=== PATIENT | male | born 1985 | race Caucasian/White ===

== ENCOUNTER 2020-04-16 10:42 | Emergency (ER) | payer OTHER, SELFPAY ==
[2020-04-16] VITALS (21 sets, daily range): BP systolic 123–160; BP diastolic 66–95; PULSE 75–108; RESP 15–38; TEMP 37.3; O2SAT 94–100
--- NOTE | ~2020-04-16 | CT_ITS ---
EXAMINATION: CT brain wo con DATE: 04/16/2020 11:33 INDICATION: Head injury TECHNIQUE: Computed tomography (CT) of the head was performed without intravenous contrast. Sagittal and coronal reconstructions were performed. The mA was adjusted according to patient size. Iterative reconstruction technique was employed. The dose-length product was 605.33 mGy-cm. COMPARISON: head CT dated 12/28/2015 FINDINGS: No fracture. No acute intracranial hemorrhage, acute infarction or abnormal extra axial fluid collect ion. Ventricles are normal and symmetric. No mass/mass effect. The orbits, paranasal sinuses and mast oid air cells are normal. IMPRESSION: 1. Normal head CT. Reviewed, dictated and finalized at location A. IMPRESSION: 1. Normal head CT.
--- NOTE | 2020-04-16 11:25 | ED.GENADULT ---
HPI - General Adult General Chief complaint: Dizziness Stated complaint: dizzy r/t fall Time Seen by Provider: 04/16/20 11:04 Source: patient Mode of arrival: ambulatory Limitations: no limitations History of Present Illness HPI narrative: This patient is a 35 year old male who presents for evaluation of head injury. Patient states 5 days ago he fell down some steps and he hit his head on concrete. He does not think he passed out but he has had dizziness, nausea and headache since his fall. He states he became concerned today because he felt like he was going to pass out. He reports he feels alot of pressure to right forehead and behind eye. He states he has hematoma to his forehead but it has resolved and he had epistaxis but that resolved as well. Onset (ago): day(s) (5) Related Data Allergies Allergy/AdvReac Type Severity Reaction Status Date / Time No Known Allergies Allergy Mild Verified 04/16/20 11:02 Review of Systems Review of Systems: All systems reviewed & are unremarkable except as noted in HPI and below Constitutional: Constitutional: Denies fever(s) and Denies weakness Eyes: Eyes: Reports change in vision ENT: Reports epistaxis Cardiovascular: Cardiovascular: Denies chest pain Respiratory: Respiratory: Denies cough and Denies dyspnea Neurologic: Reports dizziness and Reports headache(s) PMFSH Past Medical History Medical History (Updated 04/16/20 @ 13:08 by Araceli Ojeda MD) Patient denies medical problems Surgical History Surgical History (Updated 04/16/20 @ 11:26 by Araceli Ojeda MD) Hx of appendectomy Social History Social History Smoking status: Never smoker Alcohol intake: current Gender identity (if verbalized by the patient): Male Exam Narrative: Exam Narrative: GENERAL: Well-appearing, well-nourished, and in no acute distress. HEAD: Normocephalic, atraumatic EYES: PERRLA and EOMI, conjunctiva clear without discharge EARS: TM's clear bilaterally without erythema or dullness NOSE: Nares clear, no rhinorrhea or epistaxis THROAT:Mucous membranes moist, Oropharynx normal without erythema, exudate, peritonsillar swelling or fluctuance NECK: Supple, without lymphadenopathy or mass RESPIRATORY: No respiratory distress, Airway patent, Respirations non-labored, Clear to auscultation without rales, rhonchi or wheeze HEART: Regular rate and rhythm. No murmur heard. Normal peripheral pulses. ABDOMEN: Soft, nontender, nondistended, normal active bowel sounds. No masses. No rebound or guarding, No organomegaly. EXTREMITIES: No edema, normal strength with full range of motion. SKIN: Warm, dry, normal color without rash NEURO: Alert and oriented x3. CN 2-12 grossly intact. No focal deficits. PSYCH: Normal mood and affect. Course Vital Signs Vital signs: Vital Signs Temperature 99.2 F 04/16/20 10:53 Pulse Rate 108 H 04/16/20 10:53 Respiratory Rate 20 04/16/20 10:53 Blood Pressure 160/88 H 04/16/20 10:53 Pulse Oximetry 99 04/16/20 10:53 Temperature 99.2 F 04/16/20 10:53 Pulse Rate 78 04/16/20 12:16 Respiratory Rate 17 04/16/20 12:16 Blood Pressure 123/66 04/16/20 12:16 Pulse Oximetry 97 04/16/20 12:16 Medical Decision Making Vital Signs Vital Signs: Vital Signs Temperature 99.2 F 04/16/20 10:53 Pulse Rate 108 H 04/16/20 10:53 Respiratory Rate 20 04/16/20 10:53 Blood Pressure 160/88 H 04/16/20 10:53 Pulse Oximetry 99 04/16/20 10:53 Temperature 99.2 F 04/16/20 10:53 Pulse Rate 78 04/16/20 12:16 Respiratory Rate 17 04/16/20 12:16 Blood Pressure 123/66 04/16/20 12:16 Pulse Oximetry 97 04/16/20 12:16 Imaging Data Radiologist's impression: ITS Impressions Head CT 04/16/20 11:36 IMPRESSION: 1. Normal head CT. Discharge Plan Discharge Clinical Impression: Closed head injury with concussion Qualifiers: Encounter type: initial encounter Loss of consciousn
== END 2020-04-16 13:26 | disposition home or self-care (01) ==
PROVIDERS: Emergency Provider General Practice
DX: S06.0X0A Concussion without loss of consciousness, initial encounter (principal); W10.9XXA Fall (on) (from) unspecified stairs and steps, initial encounter
CPT/HCPCS: 70450; 99284

== ENCOUNTER → 2021-12-17 10:47 | Outpatient (CLI) | payer OTHER, SELFPAY ==
--- NOTE | ~2021-12-17 | US_ITS ---
EXAMINATION: US right upper quadrant EXAM DATE: 12/17/2021 11:08 INDICATION: Epigastric pain. TECHNIQUE: Multiple grayscale and Doppler images of the abdomen right upper quadrant were obtained (b y a technologist who performed the scan) and subsequently reviewed. Comparison is made to prior exami nation from 11/16/2012. FINDINGS: The pancreatic head and body are normal in appearance. The pancreatic tail is not visualized. The l iver has normal echogenicity and contour. There are no focal liver lesions identified. There is no evidence of intrahepatic biliary duct dilation. Portal venous flow was seen in the hepatopedal, nor mal direction and has normal Doppler waveform. No right-sided hydronephrosis. Common bile duct measures 4 mm, which is normal. The gallbladder wall is normal in thickness, with ex pected amount of distention. No sonographic evidence of pericholecystic fluid. There is no cholelit hiases. Technologist performing exam reports patient did not demonstrate sonographic Parham's sign. Please note that this sign is less reliable in patients who have received pain medication. IMPRESSION: Unremarkable abdominal ultrasound exam. Reviewed, dictated and finalized at location B. INSPECTOR
== END ==
PROVIDERS: Visit Provider Nurse Practitioner Family
DX: R10.13 Epigastric pain (principal)
CPT/HCPCS: 76705

== ENCOUNTER 2022-07-20 01:34 | Day surgery (SDC) | payer OTHER, SELFPAY ==
[2022-07-06 14:48] VITALS: BMI 26.7
[2022-07-20 06:38] VITALS: BP 140/88; PULSE 79; RESP 18; TEMP 36.4; O2SAT 99; BMI 26.8
[2022-07-20] MEDS: LACTATED RINGERS 1,000 ML 150 ML IV CONT (06:55)
--- NOTE | 2022-07-20 07:01 | P.PNAN_ITS ---
Anes - Initial Pre Proc Eval Procedure: Operation Date: 07/20/22 08:00 Proposed Procedures p Esophagogastroduodenoscopy & Colonoscopy - Wilfrido Valenzuela MD Date/Time: 07/20/22 07:01 Surgeon: Wilfrido Valenzuela MD Pre Op Diagnosis: diarrhea, epigastric pain Patient Data Age: 37 Gender: M Height: 1.8 m Weight: 87.3 kg Last Vital Signs Temp 36.4 C 07/20/22 06:38 Pulse 79 07/20/22 06:38 Resp 18 07/20/22 06:38 BP 140/88 07/20/22 06:38 Pulse Ox 99 07/20/22 06:38 O2 Del Method Room Air 07/20/22 06:38 Allergies Allergy/AdvReac Type Severity Reaction Status Date / Time No Known Allergies Allergy Mild Verified 07/20/22 06:46 Home Medications Medication Instructions Recorded Confirmed Type loperamide 2 mg tablet (Imodium 2 mg PO Q6H PRN Diarrhea 06/06/22 07/20/22 History A-D) Patient hx anesthesia problems: none Family hx anesthesia problems: none Results Review: All pre-operative results and documents have been reviewed as part of the pre- operative evaluation. 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 Diarrhea Epigastric pain Patient denies medical problems Surgical History Surgical History Hx of appendectomy Social History Social History Smoking status: Never smoker Alcohol intake: current Alcohol use details: 6 drinks on weekends Substance use type: does not use Living arrangements: with family Gender identity (if verbalized by the patient): Male Spiritual care concerns: No Anes - Eval Final PreProcedure Day of Procedure 07/20/22 07:01 Patient weight: overweight Heart: regular rate and rhythm Lungs: clear to auscultation Airway: Mallampati scale class II Neurological: alert and oriented Last oral intake: >/= 8 hours ASA classification: II Emergent: no Anesthetic plan: proceed Anesthesia type and monitoring: general GIVS and standard monitoring Results Review: All pre-operative results and documents have been reviewed as part of the pre- operative evaluation. Informed Consent: The patient's anesthetic plan and its attendant risks and benefits were discussed with the patient/family/POA. Questions were solicited and answers provided to the satisfaction of the patient/family/POA.
--- NOTE | 2022-07-20 07:48 | PM.HPGS ---
History of Present Illness History of Present Illness Consent: Risks, benefits, and alternatives have been discussed and questions answered. Patient agrees to proceed with procedure. Chief complaint: diarrhea, epigastric pain Narrative: John Parra is a 37 year old male with intermittent epigastric pain, trial of ppi did not help, also chronic intermittent diarrhea using imodium but can not tell difference. He had egd and colonoscopy in 2009 when had swine flu. Review of Systems Constitutional: Constitutional: Denies headache(s) and Denies weakness Eyes: Eyes: Denies blurry vision ENT: Reports Normal hearing present, Denies headache(s) and Denies neck pain Cardiovascular: Cardiovascular: Denies chest pain and Denies dyspnea Respiratory: Respiratory: Denies dyspnea Gastrointestinal: Gastrointestinal: Reports no additional gastrointestinal complaints Genitourinary: Genitourinary: Denies dysuria Musculoskeletal: Musculoskeletal: Denies neck pain Integumentary/Breasts: Skin/Breast: Denies dry skin Neurologic: Reports Normal hearing present, Denies headache(s) and Denies weakness Psychiatric: Psychiatric: Denies anxiety Endocrine: Endocrine: Denies change in body appearance Hematologic/Lymphatic: Hematologic/Lymphatic: Denies easy bleeding Allergic/Immunologic: Allergic/Immunologic: Denies urticaria PMFSH Past Medical History Medical History (Updated 07/20/22 @ 07:02 by Brayden Mcclellan MD) Abdominal pain 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 Diarrhea Epigastric pain Patient denies medical problems Surgical History Surgical History Hx of appendectomy Social History Social History Smoking status: Never smoker Alcohol intake: current Alcohol use details: 6 drinks on weekends Substance use type: does not use Living arrangements: with family Gender identity (if verbalized by the patient): Male Spiritual care concerns: No Meds Home Medications and Allergies Home Medications Medication Instructions Recorded Confirmed Type loperamide 2 mg tablet (Imodium 2 mg PO Q6H PRN Diarrhea 06/06/22 07/20/22 History A-D) Allergies Allergy/AdvReac Type Severity Reaction Status Date / Time No Known Allergies Allergy Mild Verified 07/20/22 06:46 Vital Signs Vital Signs - 24 hr 07/20/22 06:38 Temperature 97.6 F Pulse Rate 79 Respiratory Rate 18 Blood Pressure 140/88 Pulse Oximetry 99 Oxygen Delivery Room Air Exam Const: General: comfortable and no acute distress HENMT: General nose exam: Normal nares present Eyes: General: appearance normal, both eyes and all related structures Neck: Neck: no JVD Resp: Auscultation: clear to auscultation bilaterally Cardio: Rate: regular rate Rhythm: regular rhythm GI: Inspection: non-distended GI Palp: Yes Soft to palpation Skin: General skin exam: normal color Neuro: General: gait normal Speech: normal speech Extrem: General: normal to inspection Psych: Mental Status: mental status grossly normal Assessment and Plan Assessment and plan (1) Epigastric pain: Code(s): R10.13 - Epigastric pain Status: Acute Assessment and Plan: egd with bx (2) Diarrhea: Code(s): R19.7 - Diarrhea, unspecified Status: Acute Assessment and Plan: colonoscopy with random colon bx
--- NOTE | 2022-07-20 08:04 | SUR.OPER ---
EGD ended at 801, Colonoscopy began at 806.
[2022-07-20 08:21] VITALS: BP 126/87; PULSE 108; RESP 23; O2SAT 99
[2022-07-20 08:31] VITALS: BP 144/90; PULSE 96; RESP 24; O2SAT 100
[2022-07-20 08:41] VITALS: BP 143/92; PULSE 83; RESP 20; O2SAT 100
[2022-07-20 08:51] VITALS: BP 126/83; PULSE 73; RESP 17; O2SAT 99
== END 2022-07-20 09:12 | disposition home or self-care (01) ==
PROVIDERS: PCP Family Medicine; Visit Provider Internal Medicine Gastroenterology
PROC: 0DJ08ZZ Inspection of Upper Intestinal Tract, Via Natural or Artificial Opening Endoscopic (ICD-10-PCS; CPT 43235; principal; 2022-07-20 08:00)
DX: R19.7 Diarrhea, unspecified (principal); K63.5 Polyp of colon; K21.00 Gastro-esophageal reflux disease with esophagitis, without bleeding; K29.70 Gastritis, unspecified, without bleeding; K22.70 Barrett's esophagus without dysplasia
CPT/HCPCS: 45380; 43239; 88305; J2704; J7120

== ENCOUNTER 2023-06-28 07:38 | Outpatient (CLI) | payer OTHER, SELFPAY ==
--- NOTE | ~2023-06-28 | CT_ITS ---
EXAMINATION: CT abdomen pelvis w con DATE: 06/28/2023 08:07 INDICATION: Epigastric pain TECHNIQUE: Computed tomography (CT) of the abdomen and pelvis was performed with 100 cc Omnipaque 350 intravenous contrast. The dose-length product was 605.85 mGy-cm. Automated exposure control and iter ative reconstruction technique were employed. COMPARISON: CT dated 05/13/2014 FINDINGS: lung bases are unremarkable. Heart size normal. No significant pleural or pericardial effus ion. The liver, spleen, pancreas, adrenal glands and kidneys are unremarkable. Gallbladder is present . Small fat-containing umbilical hernia. Status post appendectomy. No significant vascular abnormalit y. No lymphadenopathy. There is a urachal remnant. Bladder is decompressed. No free air or free fluid . No acute osseous abnormality. IMPRESSION: 1. No acute abdominal abnormality. Reviewed, dictated and finalized at location B.
== END 2023-06-28 07:39 | disposition home or self-care (01) ==
PROVIDERS: PCP Family Medicine; Visit Provider Nurse Practitioner
DX: R10.13 Epigastric pain (principal)
CPT/HCPCS: 74177; Q9967

== ENCOUNTER 2024-01-17 14:01 | Outpatient (CLI) | payer OTHER, SELFPAY ==
--- NOTE | ~2024-01-17 | MR_ITS ---
EXAMINATION: MR shoulder RT wo con DATE: 01/17/2024 14:35 INDICATION: Right shoulder pain TECHNIQUE: Magnetic resonance imaging (MRI) of the right shoulder was performed without intravenous c ontrast. Sequences included axial PD-weighted FS FSE, coronal oblique PD-weighted FS FSE, coronal obl ique T2-weighted FS FSE, sagittal PD-weighted FS FSE, and sagittal T1-weighted SE. COMPARISON: None. FINDINGS: Coracoacromial arch: The acromion undersurface is curved in morphology (type II). The coracoacromial ligament is normal. M ild acromioclavicular osteoarthritis. Rotator cuff: The supraspinatus, infraspinatus and teres minor tendons are normal. Mild tendinopathy without tear a t the cephalad subscapularis tendon. Normal rotator cuff muscle bulk and signal. Biceps tendon, glenoid labrum and glenohumeral cartilage: Long head of the biceps tendon is normal. Tear of the posterior half the glenoid labrum beginning sup eriorly at the 12:00 position and extending posteriorly and inferiorly to the 7:00 position. Glenohum eral cartilage is normal. Fluid: Physiologic amount of fluid in the glenohumeral joint and biceps tendon sheath. No loose osteochondr al bodies. No abnormal fluid signal in the subacromial/subdeltoid bursa to suggest bursitis. Bones: Normal marrow signal with no edema, fracture or abnormal marrow replacing process. IMPRESSION: 1. Posterior labral tear extending from the 12:00 to the 7:00 position. 2. Mild subscapularis tendinopathy without tear. Reviewed, dictated and finalized at location B.
== END 2024-01-17 14:02 ==
LOC: MICIMG 14:03
PROVIDERS: PCP Orthopaedic Surgery; Visit Provider Orthopaedic Surgery
DX: M25.511 Pain in right shoulder (principal); M75.101 Unspecified rotator cuff tear or rupture of right shoulder, not specified as traumatic; S43.431A Superior glenoid labrum lesion of right shoulder, initial encounter; X58.XXXA Exposure to other specified factors, initial encounter
CPT/HCPCS: 73221

== ENCOUNTER 2024-02-29 11:43 | Outpatient (CLI) | payer OTHER, SELFPAY ==
--- NOTE | ~2024-02-29 | CT_ITS ---
EXAMINATION: CT knee LT wo con DATE: 02/29/2024 11:58 INDICATION: Left knee pain. Distal left femoral osteochondroma. TECHNIQUE: High resolution computed tomography (CT) of the left knee was performed without intravenou s contrast. Additional sagittal and coronal reconstructions were performed. Automated exposure contro l and iterative reconstruction technique were employed. The dose-length product was 215.78 mGy-cm. COMPARISON: Left knee radiographs dated 02/08/2024 FINDINGS: Bone alignment is normal. No fracture. Joint spaces appear normal on nonweightbearing imaging. There is no knee joint effusion. Again seen is a pedunculated osteochondroma extending cephalad from the me dial metaphyseal region of the distal left femur with distal tip along the deep margin of the distal tensor fascia jacobo. Bone island along the anteromedial cortex of the proximal tibial metaphyseal jen on. IMPRESSION: 1. Unchanged osteochondroma arising from the lateral metaphyseal region of the distal femur. Reviewed, dictated and finalized at location A.
== END 2024-02-29 11:44 ==
LOC: MICIMG 11:44
PROVIDERS: PCP Nurse Practitioner Family; Visit Provider Nurse Practitioner Family
DX: M25.562 Pain in left knee (principal)
CPT/HCPCS: 73700

== ENCOUNTER 2024-10-07 12:10 | Outpatient (CLI) | payer OTHER, SELFPAY ==
--- NOTE | ~2024-10-07 | CT_ITS ---
EXAMINATION: CT brain wo con DATE: 10/07/2024 12:24 INDICATION: Traumatic posterior head injury TECHNIQUE: Computed tomography (CT) of the head was performed without intravenous contrast. Sagittal and coronal reconstructions were performed. The mA was adjusted according to patient size. Iterative reconstruction technique was employed. The dose-length product was 605.33 mGy-cm. COMPARISON: head CT dated 04/16/2020 FINDINGS: No fracture. No acute intracranial hemorrhage, acute infarction or abnormal extra axial fluid collect ion. Ventricles are normal and symmetric. No mass/mass effect. There is mucosal thickening in the rig ht sphenoid sinus. The orbits and mastoid air cells are normal. IMPRESSION: 1. Normal brain. No fracture or acute intracranial process. Reviewed, dictated and finalized at location A. R TRAINER
== END 2024-10-07 12:11 | disposition home or self-care (01) ==
LOC: ANHIMG 12:11
PROVIDERS: Visit Provider Nurse Practitioner Adult Health
DX: S09.90XA Unspecified injury of head, initial encounter (principal); G44.319 Acute post-traumatic headache, not intractable; X58.XXXA Exposure to other specified factors, initial encounter
CPT/HCPCS: 70450

== ENCOUNTER 2025-09-05 01:10 | Day surgery (SDC) | payer OTHER, SELFPAY ==
[2025-08-27 09:45] VITALS: BMI 26.1
--- OUTSIDE RECORDS SUMMARY | 2025-09-05 01:13 | XMS_ITS | Encounter Summary ---
Author Organization [facility] Address [facility] [place] [address] Care Team Providers Care Employee Benefits Administrator Name Role Phone Darius Donaldson MD Primary Care Provider Zheng Loomis MD Primary Care Provider Encounter Details Date Type Department Care Team (Late st Contact Info) Description 04/07/2022 Lab Requisition [facility] [address] [place] [address] Tino Bowen MD [address] [place] [address] Social History Tobacco Use Types Packs/Day Years Used Date Smoking Tobacco: Never Assessed Sex and Gender Information Value Date Recorded Sex Assigned at Not on file Legal Sex Male 1:41 PM CDT Gender Identity Not on file Sexual Orientation Not on file documented as of this encounter Plan of Treatment Not on file documented as of this encounter Procedures Procedure Name Priority Date/Time Associated Diagnosis Comments DERMATOPATHOLOGY Routine 04/06/2022 12:0 0 AM CDT documented in this encounter Results * DERMATOPATHOLOGY (04/06/2022 12:00 AM CDT) Case Report Dermatopathology Report Case: [id number] Authorizing Provider: Tino Bowen MD Collected: 04/06/2022 12:00 AM Ordering Location: [facility] Received: 04/07/2022 02:00 PM Pathologist: Juan Manuel Perez MD Specimen: Skin, left upper outer arm 2 3:43 PM CDT DERMATOPATHOLOGY LABORATORY Final Diagnosis Specimen A. SKIN, left upper outer arm: HEMANGIOMA (D18.01) 2 3:43 PM CDT DERMATOPATHOLOGY LABORATORY at 1543 CDT Clinical History R/O hemangioma vs pyogenic granuloma. 2 3:43 PM CDT DERMATOPATHOLOGY LABORATORY Gross Description Specimen A: Received is one formalin filled container labeled with the patient's name and designated left upper outer arm. The specimen consists of a punch biopsy measuring [id number], bisected. Jar 0. 2 3:43 PM CDT DERMATOPATHOLOGY LABORATORY Microscopic Description Specimen A. SKIN, left upper outer arm: In the dermis, there are dilated vascular spaces surrounded by widely spaced endothelial cells. 2 3:43 PM CDT DERMATOPATHOLOGY LABORATORY Disclaimer An external and internal positive and negative controls are appropriate for the histochemical, immunohistochemical and immunofluorescence stain(s) in this case (if any), except where stated explicitly. The performance characteristics of the stain(s) cited in this report were developed and its performance characteristic determined by the Dermatopathology Laboratory at [facility], directed by Dr. Micah Perez. These tests need not be, and therefore are not, approved by the [place] Food and Drug Administration. The tests are used for clinical purposes. Billing Codes Specimen Charges Stain Charges 52386 1 2 3:43 PM CDT DERMATOPATHOLOGY LABORATORY Embedded Images 2 3:43 PM CDT DERMATOPATHOLOGY LABORATORY Pathology/Cytolog y TISSUE SPECIMEN FROM SKIN / Unknown 04/06/2022 04/07/2022 2:00 PM CDT us Tino Bowen MD LAB - PATHOLOGY/CYTOLOGY ORD ERABLES Final Result DERMATOPATHOLOGY LABORATORY [facility] - Department of Dermatology [address], [address] [phone] documented in this encounter Visit Diagnoses Not on filedocumented in this encounter Care Teams Employee Benefits Administrator Relationship Specialty Start Date End Date Darius Donaldson MD [address] [place] [address] PCP - General 04/07/22 07/26/22 Zheng Loomis MD [facility] [place] [address] PCP - General 07/27/22 documented as of this encounter
--- OUTSIDE RECORDS SUMMARY | 2025-09-05 01:13 | XMS_ITS | Clinical Summary ---
Author Organization [facility] [employer] [place] Address [address] [place] [address] Care Team Providers Care Licensing And Registration Director Name Role Phone Marysol Ibrahim MD Primary Care Provider [phone] Allergies No known active allergies Medications dexlansoprazole (DEXILANT) 30 mg capsule Take 30 mg by mouth daily. 06/01/2023 Active cyclobenzaprine (FLEXERIL) 10 mg tabletIndication s:Acute bilateral low back pain without sciatica Take 1 Tablet (10 mg) by mouth 3 times daily as needed for Spasm. 30 Tablet 12/19/2024 Active meloxicam (MOBIC) 7.5 mg tabletIndication s:Soria's esophagus with low grade dysplasia Take 1 Tablet (7.5 mg) by mouth daily. Take with food. 30 Tablet 01/16/2025 Active Active Problems Problem Noted Date Diagnosed Date Low vitamin D level 01/16/2025 Low testosterone in male 01/16/2025 Soria's esophagus with low grade dysplasia Overview (2025): Consults with GI at [facility] .. Last EGD 2021. Reflux esophagitis. Hypertriglyceridemia 04/20/2023 Resolved Problems Problem Noted Date Diagnosed Date Resolved Date Elevated fasting glucose 04/20/2023 Chewing tobacco dependence 04/24/2019 0 01/16/2025 Overview (01/18/2024): Uses once per week at most HTN (hypertension), benign 04/17/2018 0 01/18/2024 Situational depression 04/17/201801/16 Oral mucosal lesion 07/28/2017 01/18/20 24 Encounters Date Type Department Care Team Description 08/26/2025 External Device Data [facility] ABSTRACTION Provider, Abstract 06/24/2025 External Device Data [facility] ABSTRACTION Provider, Abstract from Last 3 Months Immunizations Immunization Administration Dates Next Due (ADACEL/BOOSTRIX)(10 YR UP) TDAP VACCINE, 0.5ML, IM 01/18/2024 (PFIZER)(12 YR UP) COVID-19 VACCINE - EMERGENCY USE AUTHORIZATION, MRNA, [id number](PF) 30 MCG/0.3 ML IM SUSP 04/05/2021,03/02/2021 Diptheria, Tetanus Toxoids, And Whole Cell Pertussis Vaccine (DTP), for intramuscular use 06/12/1992,03/15/1989,05/06/1988,09/28,1987 INFLUENZA VACCINE QUADRIVALE NT 6 MOS UP IM 08/22/2018 INFLUENZA VACCINE QUADRIVALE NT 6 MOS UP PF IM 09/19/2019 INFLUENZA VACCINE TRIVALENT SPLIT VIRUS, (6 MOS UP), 0.5ML (PF), IM 12/19/2024 Family History Medical History Relation Name Comments No Known Problems Brother twin- kylie- identical No Known Problems Father Unknown Maternal Grandfather No Known Problems Maternal Grandmother No Known Problems Mother Stroke Paternal Grandfather Pancreatic Cancer Paternal Grandmother Stroke Paternal Grandmother No Known Problems Sister Relation Name Status Comments Brother twin- kylie- identical Alive Father Alive Maternal Grandfather Maternal Grandmother Alive Mother Alive Paternal Grandfather Paternal Grandmother Sister Alive Social History Tobacco Use Types Packs/Day Years Used Date Smoking Tobacco: Never Smokeless Tobacco: Current Chew Tobacco Cessation:Ready to Q uit: Not Asked; Counseling Given: Not Answered Alcohol Use Standard Drinks/Week Comments Yes 10 (1 standard drink = 0.6 oz pu re alcohol) Sex and Gender Information Value Date Recorded Sex Assigned at Not on file Legal Sex Male 8:14 AM CDT Gender Identity Not on file Sexual Orientation Not on file Occupation Industry Job Start Date Job End Date Not on file Not on file Not on file Not on file Last Filed Vital Signs Vital Sign Reading Time Taken Comments Blood Pressure 122/72 01/16/2025 9:14 AM CDT Pulse 88 01/16/2025 8:37 AM CDT Temperature 36.8 C (98.2 F) 01/16/2025 8:37 AM CDT Respiratory Rate 16 01/16/2025 8:37 AM CDT Oxygen Saturation 99% 01/16/2025 8:37 AM CDT Inhaled Oxygen Concentration - - Weight 86.2 kg (190 lb) 01/16/2025 8:37 AM CDT Height 180.3 cm (5' 11) 01/16/2025 8:37 AM CDT Body Mass Index 26.5 01/16/2025 8:37 AM CDT Plan of Treatment Health Maintenance Due Date Last Done Comments HEPATITIS B VACCINES (1 of 3 - 19+ 3-dose series) 2006 HPV VACCINES (1 - 3-dose SCD M series) 2014 INFLUENZA VACCINE (#1) 2025 , 09/19/2019, 08/22/2018 COVID-19 Vaccine ( - 2024-2 6 season) 2025 04/05/2021, 03/02/2021 Pre-Diabetes and Diabetes Screening 01/17/2028 01/16/2025, 01/18/2024, 03/07/2023, Additional history exists COLORECTAL SCREENING 02/21/2032 2022 DTAP/TDAP/TD VACCINES (7 - T d or Tdap) 01/17/2034 01/18/2024, 06/12/1992, 03/15/1989, Additional history exists Procedures Procedure Name Priority Date/Time Associated Diagnosis Comments HEMOGLOBIN A1C Routine 01/16/2025 9:12 AM CDT Elevated fasting glucose from Last 3 Months or Most Recently Relevant to Health Maintenance Results * HEMOGLOBIN A1C (01/16/2025 9:12 AM CDT) HEMOGLOBIN A1C 5.1 <5.7 % of total Hgb [facility] Comment: For the purpose of screening for the presence of diabetes: <5.7% Consistent with the absence of diabetes 5.7-6.4% Consistent with increased risk for diabetes (prediabetes) > or =6.5% Consistent with diabetes This assay result is consistent with a decreased risk of diabetes. Currently, no consensus exists regarding use of hemoglobin A1c for diagnosis of diabetes in children. According to [place] Diabetes Association (ADA) guidelines, hemoglobin A1c <7.0% represents optimal control in non- diabetic patients. Different metrics may apply to specific patient populations. Standards of Medical Care in Diabetes(ADA). ESTIMATED AVERAGE GLUCOSE (MG/DL) 100 mg/dL [facility] ESTIMATED AVERAGE GLUCOSE (MMOL/L) 5.5 mmol/L [facility] Comment: Test Performed at: [facility] [address] [place] [address] Celio Jules MD Blood 01/16/2025 9:12 AM CDT 01/17/2025 5:47 AM CDT us Carlene Leon [facility] CHEMISTRY ORDERABLES Final R esult [facility] [phone] [facility] [address] [place] [address] from Last 3 Months or Most Recently Relevant to Health Maintenance Insurance [address] [place], [place] [address]GIAN OPEN ACCESS * Guarantor: [employer] Account Type Relation to Patient Date of Phone Billing Address Corporate Employer ATTN: LEANA LEMON [address] [address] Care Teams Licensing And Registration Director Relationship Specialty Start Date End Date Marysol Ibrahim MD [address] [place] [address] [place] [address] PCP - General Internal Medicine 10/07/24
--- OUTSIDE RECORDS SUMMARY | 2025-09-05 01:13 | XMS_ITS | Clinical Summary ---
Author Organization [facility] Address [address] [place] [address] Phone Care Team Providers Care Syrup Filterer Name Role Phone Unavailable Primary Care Provider Unavailabl e Active Problems No known active problems Social History Tobacco Use Types Packs/Day Years Used Date Smoking Tobacco: Never Assessed Sex and Gender Information Value Date Recorded Sex Assigned at Not on file Legal Sex Male 12:31 AM CDT Gender Identity Not on file Sexual Orientation Not on file Plan of Treatment Health Maintenance Due Date Last Done Comments Hepatitis C Virus (HCV) Screening 1987 TdaP Immunization 1987 Hepatitis B Immunization (1 of 3 - 19+ 3-dose series) 2006 Human Papillomavirus (HPV) Immunization (1 - 3-dose SCDM series) 2014 Influenza Immunization (#1) 2025 08/22/2018 SARS-COV-2 Immunization (3 - 2024- season) 2025 03/26/2021, 03/02/2021 Respiratory Syncytial Virus (RSV) Immunization (Adult) (1 - 1-dose 75+ series) 2062 Meningococcal Immunization (ACWY) Aged Out No longer eligible b ased on patient's age to complete this topic Pneumococcal Immunization Combined Aged Out No longer eligible b ased on patient's age to complete this topic Rotavirus Immunization Aged Out No lo nger eligible based on patient's age to complete this topic Insurance [facility]
--- OUTSIDE RECORDS SUMMARY | 2025-09-05 01:13 | XMS_ITS | Clinical Summary ---
Author Organization [facility] Address [facility] [facility] [place] [address] Care Team Providers Care Outbound Sales Agent Name Role Phone Zheng Loomis MD Primary Care Provider Source Comments [facility],non-owned Affiliates and Associated Physician Practices is amultiple site organization consisting of ambulatory clinics and hospital sitesin [place], [place], [place] and [place]. This disclosure is being madepursuant to the Care Everywhere program and may not contain all information available regarding this patient. Last updated 18.[facility] Social History Tobacco Use Types Packs/Day Years Used Date Smoking Tobacco: Never Assessed Sex and Gender Information Value Date Recorded Sex Assigned at Not on file Legal Sex Male 1:41 PM CDT Gender Identity Not on file Sexual Orientation Not on file Plan of Treatment Health Maintenance Due Date Last Done Comments HIV SCREENING 2002 HEPATITIS C SCREENING 02/15/2005 DTAP/TDAP/TD VACCINES (1 - Tdap) 2006 HEPATITIS B VACCINE (1 of 3 - 19+ 3-dose series) 2006 HPV VACCINE (1 - 3-dose SCDM series) 2014 DEPRESSION SCREENING 11/06/2024 COVID-19 VACCINE (1 - 2023-2 5 season) 2025 INFLUENZA VACCINE (#1) 2025 ZOSTER VACCINE (1 of 2) 2037 HIB VACCINE Aged Out No longer eligi ble based on patient's age to complete this topic MENINGOCOCCAL (Group B) VACC INE SHARED DECISION-MAKING Aged Out No longer eligibl e based on patient's age to complete this topic MENINGOCOCCAL GROUPS A/C/Y/W VACCINE Aged Out No longer eligible b ased on patient's age to complete this topic PNEUMOCOCCAL VACCINE Aged Out No long er eligible based on patient's age to complete this topic Insurance [facility] Care Teams Outbound Sales Agent Relationship Specialty Start Date End Date Zheng Loomis MD [facility] [place] [address] PCP - General 07/27/22
[2025-09-05] MEDS: LACTATED RINGERS 1,000 ML 150 ML IV CONT (09:17)
[2025-09-05 09:18] VITALS: BP 150/96; PULSE 100; RESP 18; TEMP 36.9; O2SAT 100
--- NOTE | 2025-09-05 09:32 | P.PNAN_ITS ---
Anes - Initial Pre Proc Eval Procedure: Operation Date: 09/05/25 10:30 Proposed Procedures p Esophagogastroduodenoscopy - Wilfrido Valenzuela MD Date/Time: 09/05/25 09:32 Surgeon: Wilfrido Valenzuela MD Pre Op Diagnosis: Soria's esophagus without dysplasia Patient Data Age: 40 Gender: M Height: 1.8 m Weight: 83.3 kg Last Vital Signs Temp 36.9 C 09/05/25 09:18 Pulse 100 09/05/25 09:18 Resp 18 09/05/25 09:18 BP 150/96 H 09/05/25 09:18 Pulse Ox 100 09/05/25 09:18 O2 Del Method Room Air 09/05/25 09:18 Allergies Allergy/AdvReac Type Severity Reaction Status Date / Time No Known Allergies Allergy Mild Verified 09/05/25 09:11 Home Medications ?Medication ?Instructions ?Recorded ?Confirmed ?Type loperamide 2 mg tablet (Imodium 2 mg PO Q6H PRN Diarrh ea 06/06/22 08/27/25 History A-D) dexlansoprazole 30 mg 30 mg PO DAILY #90 caps 05/0609/05/25 Rx capsule,biphase delayed release (Dexilant) tirzepatide/pyridoxine 08/27/25 History Patient hx anesthesia problems: none Family hx anesthesia problems: none Results Review: All pre-operative results and documents have been reviewed as part of the pre- operative evaluation. 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 Epigastric pain Abdominal pain Patient denies medical problems Surgical History Surgical History Hx of appendectomy Social History Social History Smoking status: Never smoker Alcohol intake: current Drinks per week: 5 Alcohol use details: 6 drinks on weekends Substance use type: does not use Living arrangements: with family Gender identity (if verbalized by the patient): Male Spiritual care concerns: No Anes - Eval Final PreProcedure Day of Procedure 09/05/25 09:32 Patient weight: normal Heart: regular rate and rhythm Lungs: clear to auscultation Airway: Mallampati scale class II Neurological: alert and oriented Last oral intake: >/= 8 hours ASA classification: II Emergent: no Anesthetic plan: proceed Anesthesia type and monitoring: general GIVS and standard monitoring Results Review: All pre-operative results and documents have been reviewed as part of the pre- operative evaluation. Informed Consent: The patient's anesthetic plan and its attendant risks and benefits were discussed with the patient/family/POA. Questions were solicited and answers provided to the satisfaction of the patient/family/POA.
--- NOTE | 2025-09-05 09:54 | PM.HPGS ---
History of Present Illness History of Present Illness Consent: Risks, benefits, and alternatives have been discussed and questions answered. Patient agrees to proceed with procedure. 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 Epigastric pain Abdominal pain Patient denies medical problems Surgical History Surgical History Hx of appendectomy Social History Social History Smoking status: Never smoker Alcohol intake: current Drinks per week: 5 Alcohol use details: 6 drinks on weekends Substance use type: does not use Living arrangements: with family Gender identity (if verbalized by the patient): Male Spiritual care concerns: No Meds Home Medications and Allergies Home Medications ?Medication ?Instructions ?Recorded ?Confirmed ?Type loperamide 2 mg tablet (Imodium 2 mg PO Q6H PRN Diarrhea 06/06/22 08/27/25 History A-D) dexlansoprazole 30 mg 30 mg PO DAILY #90 caps 05/23/24 09/05/25 Rx capsule,biphase delayed release (Dexilant) tirzepatide/pyridoxine 08/27/25 History Allergies Allergy/AdvReac Type Severity Reaction Status Date / Time No Known Allergies Allergy Mild Verified 09/05/25 09:11 Vital Signs Vital Signs - 24 hr 09/05/25 09:18 Temperature 98.4 F Pulse Rate 100 Respiratory Rate 18 Blood Pressure 150/96 H Pulse Oximetry 100 Oxygen Delivery Room Air Exam Const: General: comfortable and no acute distress HENMT: Face/Nose/Sinus: Normal nares present Eyes: General: appearance normal, both eyes and all related structures Neck: Neck: no JVD Resp: Auscultation: clear to auscultation bilaterally Cardio: Rate: regular rate Rhythm: regular rhythm GI: Inspection: non-distended GI Palp: Yes Soft to palpation Skin: General skin exam: normal color Extrem: General: normal to inspection Psych: Mental Status: mental status grossly normal Assessment and Plan Assessment and plan (1) Salazar esophagus: Qualifiers: Salazar's esophagus type: without dysplasia Qualified Code(s): K22.70 - Salazar's esophagus without dysplasia Code(s): K22.70 - Salazar's esophagus without dysplasia Status: Acute Assessment and Plan: egd with bx
--- NOTE | 2025-09-05 10:02 | S_PTH ---
PATIENT: John Parra LOC: [facility]#:[id number] AGE/SX: 40/M ROOM: RE09/05/[address]: Wilfrido Valenzuela MD : 1985 BED: DIS: 09/05/2025 SPEC #: [id number] RECD: 09/05/25 10:39 STATUS: ANSELMO RENadege #: [id number] TAM: 09/05/25 10:[address]: Wilfrido Valenzuela DEPT: [facility] Surgical RECD BY: Angella Banegas ENTERED: 09/05/25 10:39 SP TYPE: Surgical OTHR DR: JUICE MIXER PHYSICIAN Tissues: A - Esophageal Biopsy Procedures: Hematoxylin and Eosin Stain Gross and Microscopic Level 4
[2025-09-05 10:07] VITALS: BP 135/76; PULSE 102; RESP 22; O2SAT 100
[2025-09-05 10:17] VITALS: BP 147/103; PULSE 109; RESP 28; O2SAT 100
[2025-09-05 10:27] VITALS: BP 127/94; PULSE 100; RESP 23; O2SAT 100
[2025-09-05 10:35] VITALS: BP 136/75; PULSE 95; RESP 22; O2SAT 100
== END 2025-09-05 10:51 | disposition home or self-care (01) ==
PROVIDERS: Referring Provider Internal Medicine Gastroenterology; Visit Provider Internal Medicine Gastroenterology
PROC: 0DJ08ZZ Inspection of Upper Intestinal Tract, Via Natural or Artificial Opening Endoscopic (ICD-10-PCS; CPT 43239; principal; 2025-09-05 10:30)
DX: K22.70 Barrett's esophagus without dysplasia (principal); K21.9 Gastro-esophageal reflux disease without esophagitis; K58.0 Irritable bowel syndrome with diarrhea; Z98.890 Other specified postprocedural states
CPT/HCPCS: 43239; 88305; J2003; J2704; J7120